=== PATIENT | female | born 1965 | race Caucasian/White ===

== ENCOUNTER 2017-05-23 12:35 | Day surgery (SDC) | payer BC ==
[~2017-05-23 12:35] MED LIST: CYCL-319 PO; NAPR-260 PO; TRAM50TA2 PO
== END 2017-05-23 13:31 | disposition home or self-care (01) ==
LOC: GIL 12:35
PROVIDERS: ATTEND Internal Medicine Gastroenterology
DX: Z12.11 Encounter for screening for malignant neoplasm of colon (principal); Z53.9 Procedure and treatment not carried out, unspecified reason

== ENCOUNTER 2017-06-25 00:21 | Emergency (ER) | payer BC ==
[~2017-06-25] VITALS: Ht 160 cm; Wt 68.0 kg
[2017-06-25 00:45] VITALS: Ht 160 cm; Wt 68.0 kg
[2017-06-25] MEDS ORDERED: HYDROCODONE/APAP (5/325) TAB PO ONE (03:30)
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
[2017-06-25] MEDS ORDERED: HYDR-906 PO (04:35)
[2017-06-25] MEDS ORDERED: CYCL-319 PO (04:35)
[2017-06-25] MEDS ORDERED: ACET500C5 PO (04:35)
[2017-06-25 04:47] VITALS: BP 124/77; PULSE 75; RESP 20; TEMP 98.2
== END 2017-06-25 05:01 | disposition home or self-care (01) ==
LOC: FTE 00:21
DX: S00.03XA Contusion of scalp, initial encounter (principal); S80.10XA Contusion of unspecified lower leg, initial encounter; S80.00XA Contusion of unspecified knee, initial encounter; S29.9XXA Unspecified injury of thorax, initial encounter; V49.49XA Driver injured in collision with other motor vehicles in traffic accident, initial encounter
CPT/HCPCS: 70450; 73564; 73590; Z7502; Z7610

== ENCOUNTER 2017-08-18 13:23 | Day surgery (SDC) | payer BC ==
[~2017-08-18] VITALS: Ht 160 cm; Wt 62.3 kg
[~2017-08-18 13:23] MED LIST changes: +ACET500C5 PO; +HYDR-906 PO
[2017-08-18] MEDS ORDERED: OMEP20CA16 PO (15:07)
[2017-08-18] MEDS ORDERED: SIMV5TAB50 PO (15:07)
[2017-08-18] MEDS ORDERED: CITA-104 PO (15:07)
[2017-08-18] MEDS ORDERED: RANI150T5 PO (15:07)
[2017-08-18 15:21] VITALS: Ht 160 cm; Wt 62.3 kg
[2017-08-18] MEDS ORDERED: PROPOFOL 100 ML ONE (16:14)
--- NOTE | 2017-08-18 16:21 | OPPN ---
Date/Time of Note Date/Time of Note DATE: 08/18/17 TIME: 16:11 Proc Note GI Procedure Date 08/18/17 Indication: other (Dyspepsia) Pre-procedure Diagnosis Dyspepsia Post-procedure Diagnosis Impression: Mild gastritis. Rule out internal infection. Biopsies obtained Otherwise normal EGD Plan: PPI therapy Review pathology . Procedure Performed: Endoscopy (+ biopsies) Surgeon RACHEL RENE MD See signature line Unix Developer none Anesthesia Type: MAC ([facility]) Anesthesiologist: PALOMO MCLEAN MD Tourniquet Time none EBL none Transfusion required none Biopsy 1: Gastric body and antrum/rule out H. pylori infection Grafts/Implants none Tubes/Drains none Complication(s) none Disposition: home Procedure Description Preoperative Diagnosis: After informed consent, with the patient/relatives understanding the procedure, its indications, potential risks and complications, including but not limited to : allergic reaction, bleeding, perforation or infection, and after all pertinent questions were answered to the patients satisfaction, the patient/ relatives signed witnessed informed consent. Following this, premedication was administered slowly IV push under careful cardiovascular and respiratory monitoring with pulse oximetry, automatic blood pressure, and radiation monitor. Once the sedative effect was achieved the patient was place in the left lateral decubitus, the panendoscope was introduced and advanced under visual control. Careful examination of the upper gastrointestinal tract, both on insertion as well as withdrawal of the instrument disclosing the following findings: ESOPHAGUS: the mucosa of the entire esophagus was carefully examined and showed the following findings: the mucosa appears within normal limits. There is no evidence of esophagitis, varices, neoplasm, or stricture. No Hiatal Hernia identified. STOMACH: Upon entrance to the stomach air was insufflated, the gastric bazan distended normally. The mucosa of the fundus, body and antrum of the stomach was carefully examined both head-on and on retroflexion, and showed the following findings: There is erythema and edema of the mucosa of the body and antrum of the stomach. Biopsies were obtained to rule out H. pylori infection. Otherwise the mucosa appears within normal limits with no abnormalities. There is no evidence of ulcers or neoplasm. PYLORUS: The pylorus was carefully examined and showed the following findings: the pylorus appears patent and within normal limits, with no evidence of gastric outlet obstruction. DUODENUM: The duodenal mucosa was carefully examined in the duodenal bulb as well as the second portion of the duodenum and showed the following findings: the mucosa appears unremarkable with no evidence of duodenitis, ulcer or neoplasm. Copies To: CC: RACHEL RENE MD, MORDO MD Aug 18, 2017 16:21
--- NOTE | 2017-08-18 16:21 | OPPN ---
Date/Time of Note Date/Time of Note DATE: 08/18/17 TIME: 16:11 Proc Note GI Procedure Date 08/18/17 Indication: other (Dyspepsia) Pre-procedure Diagnosis Dyspepsia Post-procedure Diagnosis Impression: Mild gastritis. Rule out internal infection. Biopsies obtained Otherwise normal EGD Plan: PPI therapy Review pathology . Procedure Performed: Endoscopy (+ biopsies) Surgeon RACHEL RENE MD See signature line Electrophysiology Nurse Practitioner none Anesthesia Type: MAC ([facility]) Anesthesiologist: PALOMO MCLEAN MD Tourniquet Time none EBL none Transfusion required none Biopsy 1: Gastric body and antrum/rule out H. pylori infection Grafts/Implants none Tubes/Drains none Complication(s) none Disposition: home Procedure Description Preoperative Diagnosis: After informed consent, with the patient/relatives understanding the procedure, its indications, potential risks and complications, including but not limited to : allergic reaction, bleeding, perforation or infection, and after all pertinent questions were answered to the patients satisfaction, the patient/ relatives signed witnessed informed consent. Following this, premedication was administered slowly IV push under careful cardiovascular and respiratory monitoring with pulse oximetry, automatic blood pressure, and vehicle monitor technician. Once the sedative effect was achieved the patient was place in the left lateral decubitus, the panendoscope was introduced and advanced under visual control. Careful examination of the upper gastrointestinal tract, both on insertion as well as withdrawal of the instrument disclosing the following findings: ESOPHAGUS: the mucosa of the entire esophagus was carefully examined and showed the following findings: the mucosa appears within normal limits. There is no evidence of esophagitis, varices, neoplasm, or stricture. No Hiatal Hernia identified. STOMACH: Upon entrance to the stomach air was insufflated, the gastric bazan distended normally. The mucosa of the fundus, body and antrum of the stomach was carefully examined both head-on and on retroflexion, and showed the following findings: There is erythema and edema of the mucosa of the body and antrum of the stomach. Biopsies were obtained to rule out H. pylori infection. Otherwise the mucosa appears within normal limits with no abnormalities. There is no evidence of ulcers or neoplasm. PYLORUS: The pylorus was carefully examined and showed the following findings: the pylorus appears patent and within normal limits, with no evidence of gastric outlet obstruction. DUODENUM: The duodenal mucosa was carefully examined in the duodenal bulb as well as the second portion of the duodenum and showed the following findings: the mucosa appears unremarkable with no evidence of duodenitis, ulcer or neoplasm. Copies To: CC: RACHEL RENE MD, MORDO MD Aug 18, 2017 16:21
--- NOTE | 2017-08-18 16:29 | OPPN ---
Date/Time of Note Date/Time of Note DATE: 08/18/17 TIME: 16:21 Proc Note GI Procedure Date 08/18/17 Indication: other (CRC screening) Pre-procedure Diagnosis Colorectal cancer screening Abdominal pain/constipation Post-procedure Diagnosis Impression: 10 mm pedunculated polyp sigmoid colon. Snared and retrieved Otherwise normal colonoscopy to cecum. Random biopsies right and left colon obtained Rule out microscopic, lymphocytic or collagenous colitis Plan: Follow up as scheduled] High fiber diet Annual hemoccult stool testing [Review pathology] [Surveillance colonoscopy in 5 years] . Procedure Performed: Colonoscopy (Plus snare polypectomy plus biopsies) Surgeon see signature line Online Publisher none Anesthesia Type: MAC ([facility]) Anesthesiologist: PALOMO MCLEAN MD Tourniquet Time none EBL none Transfusion required none Biopsy 1: Right side of the colon Biopsy 2: Left side of the colon Additional Polyp: Sigmoid polyp Grafts/Implants none Tubes/Drains none Complication(s) none Disposition: home Procedure Description After informed consent, with the patient/relatives understanding the procedure, its indications and potential risks and complications, including but not limited to: Allergic reaction, bleeding, perforation, infection, and after all pertinent questions were answered to the patient's satisfaction, the patient/ relatives signed the witnessed informed consent. Following this, premedication was administered slowly IV push under careful cardiovascular and respiratory monitoring with pulse [employer], automatic blood pressure, and environmental monitoring technician. Once the sedative effect was achieved, the patient was placed in the left lateral decubitus position, digital rectal examination was performed. The colonoscope was then introduced and advanced under visual control throughout all segments of the colon including: []the rectum, sigmoid, descending colon, splenic flexure, transverse colon, hepatic flexure, ascending colon and finally reaching the cecum which was clearly identified by transillumination, finger indentation and the ileocecal valve. Careful examination of the mucosa of the lower gastrointestinal tract both on insertion as well as withdrawal of the instrument disclosed the following findings: PREPARATION QUALITY: [Adequate], RECTAL EXAM: The anorectal area was visualized examined and digital rectal examination performed with the following findings: No evidence of perirectal disease, no masses. COLONIC MUCOSA: The mucosa of all segments of the colon was carefully examined and showed the following findings: There is a 10 mm pedunculated polyp in the sigmoid colon. Polyp was snare and retrieved upon completion of the examination withdrawal management. Otherwise the examined mucosa appears within normal limits. There is no evidence of inflammatory changes, diverticular formation or other neoplasms, vascular malformation, or any other abnormality. The instrument was then withdrawn, the patient tolerated the procedure well and was transferred out of the Endoscopy Suite awake and in good condition to continue recovery under observation. Copies To: CC: RACHEL RENE MD, MORDO MD Aug 18, 2017 16:29
[2017-08-18 16:47] VITALS: BP 140/80; RESP 14
== END 2017-08-18 16:52 | disposition home or self-care (01) ==
LOC: GIL 13:23
PROVIDERS: ATTEND Internal Medicine Gastroenterology
DX: Z12.11 Encounter for screening for malignant neoplasm of colon (principal); D12.5 Benign neoplasm of sigmoid colon; K29.70 Gastritis, unspecified, without bleeding; E03.9 Hypothyroidism, unspecified; F41.8 Other specified anxiety disorders
CPT/HCPCS: 43239; 45378; 84703; 88305; 88312; Z7610

== ENCOUNTER 2019-01-05 13:04 | Emergency (ER) | payer SELFPAY ==
[~2019-01-05] VITALS: Ht 160 cm; Wt 70.1 kg
[~2019-01-05 13:04] MED LIST changes: -ACET500C5 PO; +CITA40TA6 PO; -CYCL-319 PO; -HYDR-906 PO; -NAPR-260 PO; +OMEP20CA16 PO; +RANI150T5 PO; +SIMV5TAB14 PO; -TRAM50TA2 PO
[2019-01-05 13:07] VITALS: BP 131/64; PULSE 90; RESP 16; Ht 160 cm; Wt 70.1 kg
[2019-01-05] MEDS ORDERED: KETOROLAC 30 MG INJ IM STA (13:41)
[2019-01-05] MEDS ORDERED: DEXAMETHASONE 10 MG/ML 1 ML INJ IM ONE (14:00)
[2019-01-05] MEDS ORDERED: NAPR-985 PO (14:32)
[2019-01-05] MEDS ORDERED: CYCL10TA7 PO (14:32)
--- NOTE | 2019-01-05 17:04 | ERD ---
ER Documentation Chief Complaint Chief Complaint LOWER BACK PAIN RADIATING TO LT LEG X 4 DAYS , WORSE TODAY HPI 53-year-old female presented the emergency department complaining of left-sided low back pain with radiation down her left leg intermittently for the past 4 days. Her current pain is rated 7/10 in severity. She denies ever having these symptoms in the past. She states her symptoms began after lifting a heavy box. She denies any loss of bowel or bladder function, lower extremity weakness, fevers, chills, or other symptoms at this time. ROS All systems reviewed and are negative except as per history of present illness. Medications Home Meds Active Scripts Naproxen* (Naprosyn*) 500 Mg Tablet, 500 MG PO BID PRN for PAIN AND/OR INFLAMMATION, #30 TAB Prov:CRUZ GALDAMEZ PA-C 01/05/19 Cyclobenzaprine Hcl* (Cyclobenzaprine Hcl*) 10 Mg Tablet, 10 MG PO TID, #15 TAB Prov:CRUZ GALDAMEZ PA-C 01/05/19 Reported Medications Simvastatin* (Simvastatin*) 5 Mg Tablet, 10 MG PO QHS, #30 TAB 08/18/17 Ranitidine Hcl* (Ranitidine Hcl*) 150 Mg Tablet, 150 MG PO HS, #30 TAB 08/18/17 Omeprazole* (Omeprazole*) 20 Mg Capsule.dr, 20 MG PO DAILY, #30 CAP 08/18/17 Citalopram Hydrobromide* (Citalopram Hydrobromide*) 40 Mg Tablet, 40 MG PO DAILY, #30 TAB 08/18/17 Allergies Allergies: Coded Allergies: No Known Allergy (Unverified , 10/05/16) PMhx/Soc Medical and Surgical Hx: pt denies Surgical Hx History of Surgery: No Anesthesia Reaction: No Hx Neurological Disorder: No Hx Respiratory Disorders: No Hx Cardiac Disorders: No Hx Psychiatric Problems: Yes (DEPRESSION, ANXIETY) Hx Miscellaneous Medical Probl: No Hx Alcohol Use: Yes (WEEKENDS) Hx Substance Use: No Hx Tobacco Use: No Smoking Status: Never smoker FmHx Family History: No diabetes Physical Exam Vitals Vital Signs Date Temp Pulse Resp B/P (MAP) Pulse Ox O2 O2 Flow FiO2 Time Delivery Rate 01/05/19 98.2 90 16 131/64 98 13:07 (86) Physical Exam Const: No acute distress Head: Atraumatic Eyes: Normal Conjunctiva ENT: Normal External Ears, Nose and Mouth. Neck: Full range of motion. No meningismus. Resp: Clear to auscultation bilaterally Cardio: Regular rate and rhythm, no murmurs Skin: No petechiae or rashes Back: No midline or flank tenderness. Tenderness palpation of the left low back. Positive straight leg raise test on the left. Ext: No cyanosis, or edema Neur: Awake and alert Psych: Normal Mood and Affect Results 24 hrs Laboratory Tests Test 01/05/19 14:06 POC Beta HCG, Qualitative NEGATIVE Current Medications Medications Dose Sig/Rosy Start Time Status Last (Trade) Ordered Route PRN Stop Time Admin Dose Reason Admin Ketorolac 30 mg ONCE STAT 01/05/19 DC 01/05/19 Tromethamine IM 13:41 14:16 (Toradol) 01/05/19 13:42 10 mg ONCE ONCE 01/05/19 DC 01/05/19 Dexamethasone IM 14:00 14:16 (Decadron) 01/05/19 14:01 Procedures/MDM 53-year-old female presenting the emergency department with signs and symptoms consistent with low back pain with sciatica. Patient was administered Toradol and Decadron in the department with good response. She was significantly improved prior to discharge. Patient's musculoskeletal symptoms have stabilized while they have been evaluated in the department and are appropriate for outpatient work up. No evidence of cauda equina, cord compression, infiltrative, or infectious etiology. Departure Diagnosis: Primary Impression: Low back pain with sciatica Chronicity: acute Back pain laterality: left Sciatica laterality: sciatica of left side Qualified Codes: M54.42 - Lumbago with sciatica, left side Condition: Fair Patient Instructions: Back Pain W/ Sciatica [facility] Usted se edgar hecho un examen mdico de control que le indica que no est en erin condicin que requiera tratamiento urgente en el Departamento de Emergencia. Un estudio ms profundo y el tratamiento de vidal condicin pueden esperar sin ningn riesgo hasta que usted sea atendida/o en el consultorio de vidal mdico o erin clnica. Es responsabilidad suya arreglar erin marilee para el seguimiento del virgilio. MANEJO DE CONDICIONES NO URGENTES EN EL FUTURO 1) Si usted tiene un mdico de atencin primaria: Usted debera llamar a vidal mdico de atencin primaria antes de venir al departamento de emergencia. Despus de las horas de consultorio, vidal doctor o vidal asociado/a est disponible por telfono. El mdico o enfermero de yamileth en el servicio telefnico puede asesorarle por aidee medio para atender el problema, o virgilio contrario se puede programar erin marilee. 2) Si usted no tiene un mdico de atencin primaria: Llame al mdico o clnica de referencia que aparece abajo jennifer las horas de consultorio para hacer erin marilee para que le vean. CLINICAS: [place] [id number] [phone] [facility] [phone] [facility] [phone] [facility] [place] [id number] [phone] [facility]. [place] [id number] [phone] [facility] [phone] [address] Additional Instructions: Llame al doctor MAANA y kitty erin MARILEE PARA DENTRO DE 1-2 IGLESIAS.Dgale a la secretaria que nosotros le instruimos hacer esta marilee.Avise o llame si vidal condicin se empeora antes de la marilee. Regresa aqui si peor o no mejor. CRUZ GALDAMEZ PA-C Jan 05, 2019 17:04
== END 2019-01-05 16:02 | disposition home or self-care (01) ==
LOC: FTE 13:04
DX: M54.42 Lumbago with sciatica, left side (principal)
CPT/HCPCS: 81025; 96372; 99284; J1100; J1885